=== PATIENT | female | born 1990 | race Caucasian/White ===

== ENCOUNTER 2018-10-26 04:10 | Emergency (ER) | payer SELFPAY ==
[~2018-10-26] VITALS: Ht 165.1 cm; Wt 77.1 kg
--- NOTE | 2018-10-26 04:18 | NUR ---
pt ambulated to er bed 08
[2018-10-26 04:25] VITALS: BP 137/89
--- NOTE | 2018-10-26 04:28 | NUR ---
28/F PRESENTED TO ED. C/O LOWER LEFT BACK PAIN 11/29 DESCRIBED SHARP. STATES SHE SLIPPED ON URINE AND FELL IN THE RESTROOM. SHE TOOK MOTRIN PRIOR TO ARRIVING TO ED BUT STATES NO RELIEF. NO SIGNS OF DISTRESS. EVEN UNLABORED BREATHING. VSS. DENIES PAST MED HX. DENIES RX. DENIES ALLERGIES.
[2018-10-26] MEDS: HYDROcodone/APAP 5/325 MG 1 TAB TAB PO ONE (05:03)
[2018-10-26 06:15] VITALS: BP 137/89
--- NOTE | 2018-10-26 06:15 | NUR ---
Patient discharged with v/s stable. Written and verbal after care instructions given and explained. Patient alert, oriented and verbalized understanding of instructions. Ambulatory with steady gait. All questions addressed prior to discharge. ID band removed. Patient advised to follow up with PMD. Rx of NORCO, IBUPROFEN, COLACE given. Patient educated on indication of medication including possible reaction and side effects. Opportunity to ask questions provided and answered.
== END 2018-10-26 06:15 | disposition home or self-care (01) ==
LOC: MED 04:10
DX: M54.9 Dorsalgia, unspecified (principal); M25.552 Pain in left hip; F17.200 Nicotine dependence, unspecified, uncomplicated; W01.0XXA Fall on same level from slipping, tripping and stumbling without subsequent striking against object, initial encounter; Y93.89 Activity, other specified; Y92.511 Restaurant or cafe as the place of occurrence of the external cause; Y99.8 Other external cause status
CPT/HCPCS: 72100; 73502; 81025; 99283